=== PATIENT | female | born 1965 | race Caucasian/White ===

== ENCOUNTER 2016-11-18 03:37 | Inpatient (IN) | payer OTHER ==
[~2016-11-18] VITALS: Ht 157.5 cm; Wt 82.6 kg
[~2016-11-18 03:37] MED LIST: ASCO500 PO; BISA5TAB12 PO; BUPR150SR PO; CLON2 PO; DOCU250C91 PO; GABA-531 PO; HYDR-3971 PO; LEVO25TA4 PO; MULT-1192 PO; NAPR220T57 PO; TOLT2TAB2 PO; WARF5 PO
[2016-11-18 10:32] LABS: BASOPHILS % (AUTO) 0.4 % (0.0-2.0); EOSINOPHILS % (AUTO) 2.7 % (1.0-6.0); HEMATOCRIT 35.4 % (36-46); LYMPHOCYTES # (AUTO) 0.9 K/uL (1.0-4.8); LYMPHOCYTES % (AUTO) 20.9 % (22.0-44.0); MEAN CORPUSCULAR HEMOGLOBIN 30.7 pg (26.0-34.0); MEAN CORPUSCULAR HGB CONC 33.8 G/dL (31.0-37.0); MEAN CORPUSCULAR VOLUME 91 fL (80-100); MONOCYTES # (AUTO) 0.6 K/uL (0.1-1.0); MONOCYTES % (AUTO) 12.7 % (2.0-9.0); NEUTROPHILS # (AUTO) 2.8 K/uL (1.8-7.7); NEUTROPHILS % (AUTO) 63.3 % (40.0-70.0); PLATELET COUNT (AUTO) 292 K/uL (150-450); RED CELL DISTRIBUTION WIDTH 17.5 % (11.5-14.5); WHITE BLOOD COUNT (AUTO) 4.4 K/uL (4.5-11.0)
[2016-11-18 10:42] LABS: ANION GAP 15 mmol/L (8-16); CALCIUM, TOTAL 9.4 mg/dL (8.8-10.5); CARBON DIOXIDE 25 mmol/L (22-29); CHLORIDE 103 mmol/L (98-107); CREATININE 0.38 mg/dL (0.60-1.30); GLOMERULAR FILTR. RATE CALC > 60 mL/min (>60); POTASSIUM 3.3 mmol/L (3.5-5.1); SODIUM SERUM 143 mmol/L (136-145); UREA NITROGEN, BLOOD 12 mg/dL (7-18)
[2016-11-18 10:47] LABS: ALANINE AMINOTRANSFERASE 113 U/L (12-78); ALBUMIN 3.6 g/dL (3.4-5.0); ASPARTATE AMINOTRANSFERASE 95 U/L (15-37); BILIRUBIN,TOTAL 0.7 mg/dL (0.1-1.0); TOTAL PROTEIN, SERUM 7.4 g/dL (6.4-8.2)
[2016-11-18] MEDS ORDERED: ONDANSETRON HCL 4 MG/2 ML VIAL IVP PRN (11:30)
[2016-11-18] MEDS ORDERED: 0.9% SODIUM CHLORIDE 10 ML SYRINGE IVP PRN (11:30)
[2016-11-18] MEDS ORDERED: ACETAMINOPHEN 325 MG TABLET PO PRN (11:30)
[2016-11-18] MEDS ORDERED: LEVO50 PO (11:36)
[2016-11-18 12:41] VITALS: BP 146/79
[2016-11-18] MEDS ORDERED: BISACODYL 5 MG EC TABLET PO PRN (15:00)
[2016-11-18 15:30] VITALS: BP 144/76
[2016-11-18] MEDS: GABAPENTIN 300 MG CAPSULE PO SCH ×2 (15:33→20:35)
[2016-11-18 16:18] LABS: INR 1.2 (0.9-1.1); PROTHROMBIN TIME 12.3 SEC (9.4-11.6)
[2016-11-18] MEDS ORDERED: POTASSIUM CHLORIDE 20 MEQ ER TABLET PO PRN (16:30)
[2016-11-18] MEDS ORDERED: POTASSIUM CHL 10 MEQ/WATER 50 ML IV PRN (16:30)
[2016-11-18] MEDS ORDERED: NAPROXEN 250 MG TABLET PO PRN (17:30)
[2016-11-18 20:18] VITALS: BP 140/71
[2016-11-18] MEDS: WARFARIN SODIUM 5 MG TABLET PO SCH (20:35)
[2016-11-18] MEDS: BuPROPion HCL 150 MG SR TABLET PO SCH (20:36)
[2016-11-18] MEDS: TOLTERODINE TARTRATE 2 MG TABLET PO SCH (20:36)
[2016-11-18] MEDS: DOCUSATE SODIUM 250 MG CAPSULE PO SCH (20:36)
[2016-11-18] MEDS: ASCORBIC ACID 500 MG TABLET PO SCH (20:36)
[2016-11-19 05:00] VITALS: BP 142/74
[2016-11-19] MEDS: LEVOTHYROXINE SODIUM 50 MCG TABLET PO SCH (05:48)
[2016-11-19 07:22] VITALS: BP 121/84
[2016-11-19] MEDS: TOLTERODINE TARTRATE 2 MG TABLET PO SCH ×2 (07:52→22:58)
[2016-11-19] MEDS: ASCORBIC ACID 500 MG TABLET PO SCH ×2 (07:53→20:12)
[2016-11-19] MEDS: BuPROPion HCL 150 MG SR TABLET PO SCH ×2 (07:53→20:12)
[2016-11-19] MEDS: GABAPENTIN 300 MG CAPSULE PO SCH ×3 (07:53→20:12)
[2016-11-19] MEDS: DOCUSATE SODIUM 250 MG CAPSULE PO SCH ×3 (07:53→20:15)
[2016-11-19] MEDS: MULTIVITAMINS, THERAPEUTIC TABLET PO SCH (07:53)
[2016-11-19 11:45] LABS: ANION GAP 9 mmol/L (8-16); CALCIUM, TOTAL 9.4 mg/dL (8.8-10.5); CARBON DIOXIDE 27 mmol/L (22-29); CHLORIDE 105 mmol/L (98-107); CREATININE 0.48 mg/dL (0.60-1.30); GLOMERULAR FILTR. RATE CALC > 60 mL/min (>60); POTASSIUM 4.1 mmol/L (3.5-5.1); SODIUM SERUM 141 mmol/L (136-145); THYROID STIMULATING HORMONE 3.98 uIU/mL (0.36-3.74); UREA NITROGEN, BLOOD 12 mg/dL (7-18)
[2016-11-19 11:47] VITALS: BP 126/79
[2016-11-19 15:55] VITALS: BP 101/68
[2016-11-19 20:05] VITALS: BP 108/73
[2016-11-20] VITALS (7 sets, daily range): BP systolic 97–128; BP diastolic 59–68
[2016-11-20] MEDS: LEVOTHYROXINE SODIUM 50 MCG TABLET PO SCH (06:09)
[2016-11-20] MEDS: TOLTERODINE TARTRATE 2 MG TABLET PO SCH ×2 (08:33→21:04)
[2016-11-20] MEDS: MULTIVITAMINS, THERAPEUTIC TABLET PO SCH (08:34)
[2016-11-20] MEDS: ASCORBIC ACID 500 MG TABLET PO SCH ×2 (08:34→21:04)
[2016-11-20] MEDS: GABAPENTIN 300 MG CAPSULE PO SCH ×3 (08:34→21:05)
[2016-11-20] MEDS: BuPROPion HCL 150 MG SR TABLET PO SCH ×2 (08:35→21:06)
[2016-11-20] MEDS: HYDROCODONE/ACETAMINOPHEN 10-325 MG TABLET PO PRN (16:35)
[2016-11-20] MEDS ORDERED: WARFARIN SODIUM 5 MG TABLET PO SCH (17:00)
[2016-11-20] MEDS: DOCUSATE SODIUM 250 MG CAPSULE PO SCH (21:05)
[2016-11-21 05:21] VITALS: BP 126/62
[2016-11-21] MEDS: LEVOTHYROXINE SODIUM 50 MCG TABLET PO SCH (06:09)
[2016-11-21] MEDS: ASCORBIC ACID 500 MG TABLET PO SCH ×2 (09:15→20:26)
[2016-11-21] MEDS: BuPROPion HCL 150 MG SR TABLET PO SCH ×2 (09:16→20:26)
[2016-11-21] MEDS: GABAPENTIN 300 MG CAPSULE PO SCH ×3 (09:16→20:26)
[2016-11-21] MEDS: MULTIVITAMINS, THERAPEUTIC TABLET PO SCH (09:16)
[2016-11-21] MEDS: DOCUSATE SODIUM 250 MG CAPSULE PO SCH ×2 (09:16→20:26)
[2016-11-21] MEDS: TOLTERODINE TARTRATE 2 MG TABLET PO SCH ×2 (09:17→20:27)
[2016-11-21 09:31] VITALS: BP 113/64
[2016-11-21 11:40] VITALS: BP 110/68
[2016-11-21 15:16] VITALS: BP 100/52
[2016-11-21] MEDS: WARFARIN SODIUM 5 MG TABLET PO SCH (17:54)
[2016-11-21 20:08] VITALS: BP 120/64
[2016-11-21 23:18] VITALS: BP 116/68
[2016-11-22 04:45] VITALS: BP 108/62
[2016-11-22] MEDS: LEVOTHYROXINE SODIUM 50 MCG TABLET PO SCH (07:30)
[2016-11-22 07:53] VITALS: BP 110/59
[2016-11-22] MEDS: HYDROCODONE/ACETAMINOPHEN 10-325 MG TABLET PO PRN (09:19)
[2016-11-22] MEDS: MULTIVITAMINS, THERAPEUTIC TABLET PO SCH (09:19)
[2016-11-22] MEDS: DOCUSATE SODIUM 250 MG CAPSULE PO SCH (09:19)
[2016-11-22] MEDS: GABAPENTIN 300 MG CAPSULE PO SCH (09:19)
[2016-11-22] MEDS: ASCORBIC ACID 500 MG TABLET PO SCH (09:19)
[2016-11-22 11:00] VITALS: BP 11/73
[2016-11-22] MEDS: TOLTERODINE TARTRATE 2 MG TABLET PO SCH (11:34)
[2016-11-22] MEDS: BuPROPion HCL 150 MG SR TABLET PO SCH (11:35)
== END 2016-11-22 14:46 | disposition home or self-care (01) | DRG 754 ==
LOC: EMS 03:38 → 6N 11:37
PROVIDERS: ADMIT Family Medicine; ATTEND Family Medicine
DX: F32.9 Major depressive disorder, single episode, unspecified (principal); I82.409 Acute embolism and thrombosis of unspecified deep veins of unspecified lower extremity; G82.20 Paraplegia, unspecified; R45.851 Suicidal ideations; Z88.1 Allergy status to other antibiotic agents; Z88.8 Allergy status to other drugs, medicaments and biological substances; F41.9 Anxiety disorder, unspecified; Z79.01 Long term (current) use of anticoagulants; E03.9 Hypothyroidism, unspecified
CPT/HCPCS: 84443; 99285; G0480